=== PATIENT | female | born 1990 | race Caucasian/White ===

== ENCOUNTER → 2016-06-20 | Day surgery (SDC) | payer OTHER ==
[~2016-06-20] VITALS: Ht 167.6 cm; Wt 86.2 kg
[~2016-06-20] MED LIST: LUTERA-28 TABL1 EACH PO
--- NOTE | 2016-06-20 10:42 | ED GI/GU/ABDOMINAL COMPLAINT ---
History of Present Illness General Chief Complaint: Abdominal Pain/Flank Pain Stated Complaint: SENT IN BY WALK-IN TO RULE OUT APPENDICITIS Source: patient, family, old records (FROM URGENT CARE CLINIC) Exam Limitations: no limitations Vital Signs & Intake/Output Vital Signs & Intake/Output Vital Signs Date Time Temp Pulse Resp B/P Pulse O2 O2 Flow FiO2 Ox Delivery Rate 06/20 1637 97.1 73 16 110/57 99 Room Air 06/20 1447 98.0 68 16 97/58 94 Room Air 06/20 1358 97.1 64 16 106/55 98 Room Air 06/20 1156 99.0 74 20 110/59 98 Room Air 06/20 1105 97.8 78 18 108/70 96 Room Air 06/20 1006 97.7 80 18 105/72 99 Room Air Allergies Coded Allergies: Cephalosporins (Intermediate, RASH 06/20/16) Penicillins (Intermediate, RASH HIVES 06/20/16) Sulfa (Sulfonamide Antibiotics) (Intermediate, HIVES 06/20/16) albuterol (Intermediate, RASH AND HIVES 06/20/16) amoxicillin (Intermediate, RASH AND HIVES 06/20/16) shellfish derived (Intermediate, HIVES 06/20/16) Uncoded Allergies: VODKA (Intermediate, TINGLING LIPS 06/20/16) Reconcile Medications Levonorgestrel-Ethin Estradiol (Lutera-28 Tablet) 0.1 MG-20 MCG TABLET 1 TAB PO DAILY CONTROL (Reported) Triage Note: C/O MID ABDOMINAL PAIN RADIATING TO RLQ SINCE X 7 HOURS, WITH NAUSEA, LOOSE STOOLS, NO VOMITING. LMP: 3 WEEKS AGO. SENT BY WALK-IN, (NEGATIVE UA, NEG ) Triage Nurses Notes Reviewed? yes ? n Is pt currently ? No HPI: Patient is a 26-year-old female presents complaining of abdominal pain. Epigastric pain awoke patient from sleep at 3 AM this morning. Pain now localizing to the right lower quadrant. Pain is an aching pain currently severe , worsens with bending forward, lying flat and standing up. Sitting mildly improves the pain. Patient was seen at an urgent care clinic prior to arrival and referred to the emergency department to rule out appendicitis and for further evaluation. Positive associated nausea. Last bowel movement was this morning and loose per patient. Mild cough for the past 2-3 days. Last menstrual period was approximately 3 weeks ago and normal. Past History Travel History Traveled to [place] past 21 day No Medical History Any Pertinent Medical History? none Surgical History Surgical History: non-contributory Psychosocial History What is your primary language Serbian Tobacco Use: Never used ETOH Use: occasional use Family History Hx Contributory? No Review of Systems Review of Systems Constitutional: Denies: chills, fever. EENTM: Reports: no symptoms. Respiratory: Reports: cough. Cardiovascular: Reports: no symptoms. GI: Reports: see HPI. Genitourinary: Reports: no symptoms. Musculoskeletal: Reports: back pain. Skin: Reports: no symptoms. Neurological/Psychological: Reports: no symptoms. Hematologic/Endocrine: Reports: no symptoms. Immunologic/Allergic: Reports: no symptoms. Physical Exam Physical Exam General Appearance: well developed/nourished, alert, awake Head: atraumatic, normal appearance Eyes: Bilateral: normal appearance, PERRL, EOMI. Ears, Nose, Throat, Mouth: hearing grossly normal, moist mucous membrane Neck: normal inspection, supple, full range of motion Respiratory: normal breath sounds, chest non-tender, no respiratory distress, lungs clear Cardiovascular: regular rate/rhythm Gastrointestinal: normal bowel sounds, soft, POSITIVE mCbURNEY'S POINT TENDERNESS. pOSITIVE rOVSING SIGN. nEGATIVE Santos SIGN. Back: normal inspection, normal range of motion, NO cva TENDERNESS Extremities: normal range of motion Neurologic/Psych: no motor/sensory deficits, awake, alert, oriented x 3, normal gait, normal mood/affect Skin: intact, normal color, warm/dry Core Measures ACS in differential dx? No Severe Sepsis Present: No Septic Shock Present: No Progress Differential Diagnosis: appendicitis, biliary colic, cholecystitis, diverticulitis, ectopic , endometritis, hepatitis, hernia, ischemic bowel, inflamm bowel dis, intrauterine , kidney stone, ovarian cyst, ovarian torsion, pancreatitis, PID/cervicitis, UTI/pyelo Plan of Care: Orders Procedure Date/time Status PATHOLOGY SPECIMEN 06/20 1810 Active Add-on Test (ER Only) 06/20 1130 Active CULTURE,URINE 06/20 1059 Active URINE 06/20 1053 Complete URINALYSIS 06/20 1053 Complete LIPASE 06/20 1053 Complete COMPREHENSIVE METABOLIC PANEL 06/20 1053 Complete CBC WITHOUT DIFFERENTIAL 06/20 1053 Complete Current Medications Sig/Loan Start time Last Medication Dose Stop Time Status Admin Ciprofloxacin 400 MG ONCE ONE 06/20 1329 CAN (Ciprofloxacin) 06/20 1331 Laboratory Tests 06/20/16 1059: Anion Gap 10, Estimated GFR > 60, BUN/Creatinine Ratio 14.4, Glucose 91, Calcium 9.7, Total Bilirubin 1.3, AST 21, ALT 27, Alkaline Phosphatase 64, Total Protein 7.3, Albumin 4.3, Globulin 3.0, Albumin/Globulin Ratio 1.4, Lipase 53, CBC w Diff MAN DIFF ORDERED, RBC 5.01, MCV 88.2, MCH 29.7, RDW 11.6, MPV 8.6, Gran % 88.6 H, Lymphocytes % 7.0 L, Monocytes % 3.9, Eosinophils % 0, Basophils % 0.5 , Absolute Granulocytes 16.4 H, Segmented Neutrophils 79 H, Band Neutrophils 4 , Absolute Lymphocytes 1.3, Lymphocytes 14 L, Monocytes 2, Absolute Monocytes 0.7 H, Eosinophils 1, Absolute Eosinophils 0, Absolute Basophils 0.1, Platelet Estimate ADEQUATE, Normocytic RBCs VERIFIED, Normochromic RBCs VERIFIED, PUBS MCHC 33.7 06/20/16 1055: Urinalysis LIGHT H, Urine Color YEL, Urine Clarity CLEAR, Urine pH 6.5, Ur Specific [place] 1.020, Urine Protein TRACE H, Urine Ketones NEG, Urine Nitrite NEG, Urine Bilirubin NEG, Urine Urobilinogen 0.2, Ur Leukocyte Esterase NEG, Ur Microscopic SEDIMENT EXAMINED, Urine RBC 1-3, Urine WBC 3-5 H, Ur Epithelial Cells MOD H, Urine Bacteria PACKD H, Urine Mucus MANY H, Urine Hemoglobin NEG , Urine Glucose NEG, Urine Test NEGATIVE Microbiology 06/20 105 URINE ROUT: Urine Culture - RECD 1310: Results discussed with patient and her mother. Patient continues to decline pain medication or antinausea medication. Surgery paged. 1344: Patient evaluated by surgical PA plan for patient to go to the operating room this evening for appendectomy. Patient should remain nothing by mouth, IV antibiotics, IV fluids, and pain medication as needed. (LYLE MARS,BRIANNE) Initial ED EKG: none Departure Departure Time of Disposition: 1332 Disposition: STILL A PATIENT Condition: Stable Clinical Impression Primary Impression: Acute appendicitis Referrals: CRISTOBAL BAGLEY,CAMILLA Mackenzie (PCP/Family) Departure Forms: Customer Survey General Discharge Information Admission Note Documentation of Exam: Documentation of any treatments & extenuating circumstances including Concerns Regarding Discharge (functional status, medication knowledge or non-compliance, living conditions, etc.) that warrant an admission rather than observation: OR/GI Note Spoke With: ADRIÁN BAGLEY,GANESH Freedman ED Treatment Decision: WILIAN YOUSIF requires urgent operative management or an emergent procedure that cannot be performed in the Emergency Room setting. Transport To: [facility]
[2016-06-20 11:10] LABS: ABSOLUTE BASOPHIL COUNT 0.1 /CUMM (0.0-0.2); ABSOLUTE EOSINOPHIL COUNT 0 /CUMM (0.0-0.7); ABSOLUTE GRANULOCYTE CT 16.4 /CUMM (1.4-6.5); ABSOLUTE LYMPH COUNT 1.3 /CUMM (1.2-3.4); ABSOLUTE MONOCYTE COUNT 0.7 /CUMM (0.10-0.60); BASOPHIL % 0.5 % (0.0-2.0); EOSINOPHIL % 0 % (0-5); GRANULOCYTE % 88.6 % (42.2-75.2); HEMATOCRIT 44.2 % (37-47); MEAN CORPUSCULAR HGB 29.7 PG (27.0-31.0); MEAN CORPUSCULAR HGB CONC 33.7 G/DL (33.0-37.0); MEAN CORPUSCULAR VOLUME 88.2 FL (81.0-99.0); MEAN PLATELET VOLUME 8.6 FL (7.4-10.4); PLATELET COUNT 366 /CUMM (130-400); RBC DISTRIBUTION WIDTH 11.6 % (11.5-14.5); RED BLOOD CELL CT 5.01 /CUMM (4.20-5.40); WHITE BLOOD CELL COUNT 18.5 /CUMM (4.8-10.8)
--- NOTE | 2016-06-20 12:54 | CT SCAN REPORT ---
EXAMINATION: CT ABDOMEN AND PELVIS WITH CONTRAST CLINICAL INFORMATION: Epigastric pain now localized to right lower quadrant. COMPARISON: None TECHNIQUE: Multidetector volumetric imaging was performed of the abdomen and pelvis before and after the IV administration of 95 mL of Optiray 320 intravenous contrast. Sagittal and coronal reformatted images were obtained on the technologist's workstation. DLP: 471 mGy-cm FINDINGS: LUNG BASES: The visualized lung bases are unremarkable. LIVER, GALLBLADDER, AND BILIARY TREE: The liver is normal in size, shape, and attenuation. No focal hepatic lesion or biliary ductal dilatation is present. The gallbladder is unremarkable with no evidence of radiopaque gallstones, gallbladder wall thickening, or obvious pericholecystic inflammatory changes. PANCREAS: Unremarkable. SPLEEN: Unremarkable. ADRENAL GLANDS: Unremarkable. KIDNEYS AND URETERS: There is a 5 mm low-attenuation lesion in the upper pole of the left kidney. This is too small to definitively characterize but probably represents a small cyst. The kidneys are otherwise unremarkable. BLADDER: Unremarkable. GASTROINTESTINAL TRACT: The small and large bowel are unremarkable. The appendix is not identified with certainty. What is thought to be the appendix is seen, axial images 59-61, coronal reconstructed image 33-36, and sagittal reconstructed images 76-89. This measures 1 cm in diameter and may demonstrate some wall enhancement. The surrounding fat is normal. No fluid collection is seen. ABDOMINAL WALL: No significant hernia is appreciated. LYMPH NODES: There are small small bowel mesentery lymph nodes. No enlarged lymph nodes are seen. VASCULAR: Unremarkable. PELVIC VISCERA: Unremarkable. OSSEOUS STRUCTURES: Unremarkable. IMPRESSION: Question early appendicitis. Small low-attenuation lesion in the upper pole of the left kidney probably representing a cyst.
--- NOTE | 2016-06-20 15:04 | History & Physical Pre-Op ---
TIFFANIE MISTRY 06/20/16 1449: General Information and HPI MD Statement: I have seen and personally examined WILIAN YOUSIF and documented this H&P. The patient is a 26 year old F who presented with a patient stated chief complaint of [RLQ abdominal pain with loose stool and nausea]. Source of Information: patient, family, old records Exam Limitations: no limitations History of Present Illness: Wilian is a 26 year old female presenting to ER from urgent care with complaints of acute onset of abdominal pain that began one day ago. She states that she began to notice epigastric pain after eating her dinner. The pain was accompanied by one episode of loose stool. She states that she had difficulty laying on her right side as a result of the pain and she found that overnight the pain localized to her right lower quadrant. While at the urgent care earlier this am, she noted some nausea but no vomitting. She also states that she began to notice chills and some body aches. She is without complaints of chest pain, shortness of breath and difficulty breathing. She does acknowledge that she did have an upper respiratory infection approximately two weeks ago with a cough that has been residual. She notes abdominal discomfort with even a mild cough presently. Allergies/Medications Allergies: Coded Allergies: Cephalosporins (Intermediate, RASH 06/20/16) Penicillins (Intermediate, RASH HIVES 06/20/16) Sulfa (Sulfonamide Antibiotics) (Intermediate, HIVES 06/20/16) albuterol (Intermediate, RASH AND HIVES 06/20/16) amoxicillin (Intermediate, RASH AND HIVES 06/20/16) shellfish derived (Intermediate, HIVES 06/20/16) Uncoded Allergies: VODKA (Intermediate, TINGLING LIPS 06/20/16) Home Med list Levonorgestrel-Ethin Estradiol (Lutera-28 Tablet) 0.1 MG-20 MCG TABLET 1 TAB PO DAILY CONTROL (Reported) Compliance With Home Meds: GOOD Past History Medical History EENT: NONE (tonsillectomy as child) Respiratory: NONE (recent URI) Surgical History Pertinent Surgical History: non-contributory, tonsillectomy Past Family/Social History Psychosocial History ETOH Use: occasional use Employment History Employment: Employed Profession/Employer: assistant tennis coach, [employer] Review of Systems Review of Systems Constitutional: Reports: chills, malaise. EENTM: Reports: no symptoms. Cardiovascular: Reports: no symptoms. Respiratory: Reports: cough. GI: Reports: see HPI, abdominal pain, diarrhea. Genitourinary: Reports: no symptoms. Musculoskeletal: Reports: no symptoms. Skin: Reports: no symptoms. Neurological/Psychological: Reports: no symptoms. Hematologic/Endocrine: Reports: no symptoms. Immunologic/Allergic: Reports: no symptoms. All Other Systems: Reviewed and Negative Exam & Diagnostic Data Last 24 Hrs of Vital Signs/I&O Vital Signs Date Time Temp Pulse Resp B/P Pulse O2 O2 Flow FiO2 Ox Delivery Rate 06/20 1447 98.0 68 16 97/58 94 Room Air 06/20 1358 97.1 64 16 106/55 98 Room Air 06/20 1156 99.0 74 20 110/59 98 Room Air 06/20 1105 97.8 78 18 108/70 96 Room Air 06/20 1006 97.7 80 18 105/72 99 Room Air Intake & Output 06/20 1600 06/20 0800 06/20 0000 Intake Total 300 Output Total Balance 300 Intake, IV 300 Patient 190 lb Weight Physical Exam: General: Alert and oriented x3. no acute distress HEENT: Sclera anicteric Cardiac: RRR, s1s2 Pulmonary: C T A bilaterally Abdomen: Soft, non-distended. Marked rebound tenderness noted in right lower quadrant Extremities: Moves all extremities, distal sensation intact. Neuro and vascular intact. Bilateral calves soft and non-tender. No peripheral edema noted. Last 24 Hrs of Labs/Kit: Laboratory Tests 06/20/16 1059: Anion Gap 10, Estimated GFR > 60, BUN/Creatinine Ratio 14.4, Glucose 91, Calcium 9.7, Total Bilirubin 1.3, AST 21, ALT 27, Alkaline Phosphatase 64, Total Protein 7.3, Albumin 4.3, Globulin 3.0, Albumin/Globulin Ratio 1.4, Lipase 53, CBC w Diff MAN DIFF ORDERED, RBC 5.01, MCV 88.2, MCH 29.7, RDW 11.6, MPV 8.6, Gran % 88.6 H, Lymphocytes % 7.0 L, Monocytes % 3.9, Eosinophils % 0, Basophils % 0.5 , Absolute Granulocytes 16.4 H, Segmented Neutrophils 79 H, Band Neutrophils 4 , Absolute Lymphocytes 1.3, Lymphocytes 14 L, Monocytes 2, Absolute Monocytes 0.7 H, Eosinophils 1, Absolute Eosinophils 0, Absolute Basophils 0.1, Platelet Estimate ADEQUATE, Normocytic RBCs VERIFIED, Normochromic RBCs VERIFIED, PUBS MCHC 33.7 06/20/16 1055: Urinalysis LIGHT H, Urine Color YEL, Urine Clarity CLEAR, Urine pH 6.5, Ur Specific [place] 1.020, Urine Protein TRACE H, Urine Ketones NEG, Urine Nitrite NEG, Urine Bilirubin NEG, Urine Urobilinogen 0.2, Ur Leukocyte Esterase NEG, Ur Microscopic SEDIMENT EXAMINED, Urine RBC 1-3, Urine WBC 3-5 H, Ur Epithelial Cells MOD H, Urine Bacteria PACKD H, Urine Mucus MANY H, Urine Hemoglobin NEG , Urine Glucose NEG, Urine Test NEGATIVE Microbiology 06/20 105 URINE ROUT: Urine Culture - RECD Diagnostic Data Other Results CT SCAN: PATIENT: WILIAN YOUSIF PRESENT AGE: 26 PATIENT ACCOUNT NO: [id number] : 92 LOCATION: [facility] ORDERING PHYSICIAN: BRIANNE MARS SERVICE DATE: 06/20/16 EXAM TYPE: CAT - CT ABD & PELVIS W IV CONTRAST EXAMINATION: CT ABDOMEN AND PELVIS WITH CONTRAST CLINICAL INFORMATION: Epigastric pain now localized to right lower quadrant. COMPARISON: None TECHNIQUE: Multidetector volumetric imaging was performed of the abdomen and pelvis before and after the IV administration of 95 mL of Optiray 320 intravenous contrast. Sagittal and coronal reformatted images were obtained on the technologist's workstation. DLP: 471 mGy-cm FINDINGS: LUNG BASES: The visualized lung bases are unremarkable. LIVER, GALLBLADDER, AND BILIARY TREE: The liver is normal in size, shape, and attenuation. No focal hepatic lesion or biliary ductal dilatation is present. The gallbladder is unremarkable with no evidence of radiopaque gallstones, gallbladder wall thickening, or obvious pericholecystic inflammatory changes. PANCREAS: Unremarkable. SPLEEN: Unremarkable. ADRENAL GLANDS: Unremarkable. KIDNEYS AND URETERS: There is a 5 mm low-attenuation lesion in the upper pole of the left kidney. This is too small to definitively characterize but probably represents a small cyst. The kidneys are otherwise unremarkable. BLADDER: Unremarkable. GASTROINTESTINAL TRACT: The small and large bowel are unremarkable. The appendix is not identified with certainty. What is thought to be the appendix is seen, axial images 59-61, coronal reconstructed image 33-36, and sagittal reconstructed images 76-89. This measures 1 cm in diameter and may demonstrate some wall enhancement. The surrounding fat is normal. No fluid collection is seen. ABDOMINAL WALL: No significant hernia is appreciated. LYMPH NODES: There are small small bowel mesentery lymph nodes. No enlarged lymph nodes are seen. VASCULAR: Unremarkable. PELVIC VISCERA: Unremarkable. OSSEOUS STRUCTURES: Unremarkable. IMPRESSION: Question early appendicitis. Small low-attenuation lesion in the upper pole of the left kidney probably representing a cyst. DICTATED BY: TRE PLATA MD DATE/TIME DICTATED:06/20/161230 TRUCK CHAUFFEUR:MAINE DATE/TIME TRANSCRIBED:06/20/161230 CONFIDENTIAL, DO NOT COPY WITHOUT APPROPRIATE AUTHORIZATION. <Electronically signed in Other Vendor System> SIGNED BY: TRE PLATA MD [id number] Assessment/Plan Assessment/Plan: This is a 26 year old female who presents to the ER today with complaints of abdominal pain focally in right lower quadrant. She has an elevated WBC of 18.[address] scan suggestive of early wall enhancement of her appendix, although entirety of appendix poorly viewed. Clinical correlation is suggestive of appendicitis. Past medical history is negative, surgical history is tonsillectomy, non- contributory. She has allergies to PCN and cephalosporins, reaction of hives. She has shellfish allergy. Only medication is BCP. Plan: -Keep NPO, IV hydration with D5NS at 75-100 cc/hr -Cipro/Flagyl for abx ppx -Offirmev prn for pain -Discussed with Dr. Sampson, Plan for OR this afternoon As Ranked By This Provider Problem List: 1. Acute appendicitis GANESH SAMPSON MD 06/20/16 1833: Attending MD Review Statement Attending Statement Attending MD Statement: examined this patient, discuss w/resident/PA/DIESEL DINKEY ENGINEER, discussed with family, reviewed images Attending Assessment/Plan: 26-year-old woman with classic progression of abdominal pain and examination for appendicitis. CT scan confirms the diagnosis. I have looked at the images personally. Plan will be to proceed with laparoscopic appendectomy. She is informed the risks of the operation including bleeding and infection and he agrees to proceed.
[2016-06-20 16:37] VITALS: BP 110/57
--- NOTE | 2016-06-20 18:33 | Operative Report ---
Operative/Inv Procedure Report Surgery Date: 06/20/16 Name of Procedure: Laparoscopic appendectomy Pre-Operative Diagnosis: Acute appendicitis Post-Operative Diagnosis: Same Estimated Blood Loss: scant Surgeon/Biomass Technician: Rodrick Willis/Michael MARS Anesthesia: general endotracheal tube Drains: None Specimens: Appendix Operative Indication: See H&P Operative/Procedure Note Note: After consent she was brought to the operating room and laid supine. Gen. anesthesia was obtained and her abdomen was prepped and draped. The skin above the umbilicus was infiltrated local anesthesia and a curvilinear incision made sharply. We dissected down to the fascia and grasped with Anil's. The fascia was incised sharply and stay sutures placed. A blunt Michel port was placed and pneumoperitoneum achieved. 2, 5 mm ports were placed in the suprapubic region and left lower quadrant, after local anesthesia was instilled and under direct vision the camera. She's placed in Trendelenburg and rotated towards the left. The right lower quadrant was explored. There was inflamed and fibrin coated appendix in the right lower quadrant. The inflammation extended down to the base. We grasped the base and carefully created a window around it with a [place] dissector. The meso appendix was divided with the Endo KYLIE Hicks load. The base was divided high on the cecum with a reload of the Hicks stapler. Appendix placed in Endo Catch bag and cinched up. Hemostasis achieved with cautery. The right lower quadrant pelvis and right upper quadrant were then serially suction irrigated normal saline. Final inspection of the staple lines revealed adequate hemostasis. We then removed the ports and delivered the appendix and passed off the field. The fascia was closed 0 Vicryl suture. Skin incisions closed with 4-0 Vicryl. Steri-Strips and sterile dressing applied. Sponge and needle counts are correct CC: CRISTOBAL BAGLEY,CAMILLA Mackenzie
== END ==
LOC: ERH 09:46 → ER-OR 10:10 → ERH 10:10 → STS 16:49 → ER-OR 20:30
PROVIDERS: Physician Assistant
DX: K35.80 Unspecified acute appendicitis (principal)
CPT/HCPCS: 74177; 81001; 81025; 87086; 88304; 96374; 96375; J0131; J0744; J1100; J1170; J1200; J1885; J2175; J2250; J2405; J3010; J7042; J7060